=== PATIENT | female | born 1965 | race Caucasian/White ===

== ENCOUNTER 2023-02-01 14:56 | Inpatient (IN) | payer BC, OTHER ==
[2023-02-01 15:41] LABS: #Monocytes 1.1 10x3/uL (0.0-1.1); #Neutrophils 5.5 10x3/uL (1.5-8.4); %Basophils 0.5 % (0.0-2.0); %Eosinophils 0.3 % (0.0-6.0); %Lymphocytes 22.5 % (18.0-47.0); %Monocytes 12.7 % (0.0-10.0); %Neutrophils 63.8 % (40.0-75.0); ALT (SGPT) 58 U/L (8-55); AST (SGOT) 29 U/L (5-34); Albumin 4.2 g/dL (3.5-5.0); Alkaline Phosphatase 69 U/L (40-110); Anion Gap 20 mmol/L (10-20); BUN (Urea Nitrogen) 41 mg/dL (9.8-20.1); Bilirubin, Total 0.6 mg/dL (0.2-1.2); CK (CPK) 70 U/L (29-168); Calc. Creatinine Clearance 0 mL/min (70-130); Calcium 9.4 mg/dL (7.8-10.44); Carbon Dioxide 19 mmol/L (22-29); Chloride 107 mmol/L (98-107); Estimated GFR 39; Globulin 3.1 g/dL (2.4-3.5); Glucose 159 mg/dL (70-105); Hemoglobin 13.5 g/dL (12.0-15.5); Lipase 15 U/L (8-78); Magnesium 1.7 mg/dL (1.6-2.6); Mean Corpuscular HGB CONC 33.8 g/dL (32.0-36.0); Mean Corpuscular Hemoglobin 31.4 pg (27.0-33.0); Potassium 3.9 mmol/L (3.5-5.1); Protein, Total 7.3 g/dL (6.0-8.3); Sodium 142 mmol/L (136-145); White Blood Cell (WBC) Count 8.6 10x3/uL (3.5-10.5)
[2023-02-01 15:42] LABS: Platelet Count 197 10x3/uL (150-450)
[2023-02-01 15:43] LABS: Mean Platelet Volume 10.8 fl (7.4-10.4)
[2023-02-01 16:08] LABS: CKMB 2.4 ng/mL (0-6.6)
[2023-02-01] MEDS ORDERED: Ondansetron PF 4 MG/2 ML Vial IVP PRN (17:03)
[2023-02-01] MEDS ORDERED: hydrALAZINE 20 MG/ML VIAL SLOW IVP PRN (17:26)
[2023-02-01] MEDS ORDERED: Sodium Chloride 0.9% 1,000 ML IV SCH (21:00)
[2023-02-01] MEDS: Atorvastatin Calcium 40 MG TAB PO SCH (21:30)
[2023-02-01 23:24] VITALS: BMI 33.6
[2023-02-02] MEDS ORDERED: Sodium Chloride 0.9% 500 ML IV SCH (03:30)
[2023-02-02 06:44] LABS: #Eosinphils 0.1 10x3/uL (0.0-0.5); #Monocytes 0.5 10x3/uL (0.0-1.1); #Neutrophils 2.9 10x3/uL (1.5-8.4); %Basophils 0.6 % (0.0-2.0); %Eosinophils 2.5 % (0.0-6.0); %Monocytes 8.8 % (0.0-10.0); %Neutrophils 55.9 % (40.0-75.0); Hemoglobin 11.7 g/dL (12.0-15.5); Mean Corpuscular HGB CONC 33.9 g/dL (32.0-36.0); Mean Corpuscular Hemoglobin 31.3 pg (27.0-33.0); Mean Corpuscular Volume 92.2 fl (81.6-98.3); Mean Platelet Volume 10.4 fl (7.4-10.4); Platelet Count 172 10x3/uL (150-450); RBC Distribution Width 12.7 % (11.5-14.5); Red Blood Cell (RBC) Count 3.74 10x6/uL (3.90-5.03); White Blood Cell (WBC) Count 5.1 10x3/uL (3.5-10.5)
[2023-02-02 06:53] LABS: Anion Gap 14 mmol/L (10-20); BUN (Urea Nitrogen) 31 mg/dL (9.8-20.1); Calc. Creatinine Clearance 72 mL/min (70-130); Calcium 8.5 mg/dL (7.8-10.44); Carbon Dioxide 20 mmol/L (22-29); Chloride 111 mmol/L (98-107); Estimated GFR 65; Glucose 87 mg/dL (70-105); Potassium 3.4 mmol/L (3.5-5.1); Sodium 142 mmol/L (136-145)
[2023-02-02] MEDS ORDERED: Dextrose 50% Abboject 50 ML SYRINGE SLOW IVP PRN (08:22)
[2023-02-02] MEDS ORDERED: Glucagon 1 MG/ML KIT IM PRN (08:22)
[2023-02-02] MEDS ORDERED: Docusate 100 MG CAP PO PRN (08:22)
[2023-02-02] MEDS ORDERED: Dextrose 5% in Water 1,000 ML IV PRN (08:22)
[2023-02-02] MEDS ORDERED: Potassium Chloride 20 MEQ TAB PO SCH (08:30)
[2023-02-02] MEDS: Aspirin 81 mg Enteric Coated Tablet PO SCH (08:30)
[2023-02-02] MEDS ORDERED: Gemfibrozil 600 MG TAB PO SCH (09:00)
[2023-02-02 12:27] LABS: Hemoglobin A1c 7.2 % (4.0-6.0)
[2023-02-02] MEDS: Atorvastatin Calcium 40 MG TAB PO SCH (20:27)
[2023-02-03] MEDS: Levothyroxine Sodium 75 MCG TAB PO SCH (05:42)
[2023-02-03] MEDS ORDERED: Levothyroxine Sodium 50 MCG TAB PO SCH (06:00)
[2023-02-03] MEDS: HumaLOG 300 UNITS/3 ML VIAL SC PRN (06:19)
[2023-02-03 06:47] LABS: Hemoglobin 11.5 g/dL (12.0-15.5); Mean Corpuscular HGB CONC 35.1 g/dL (32.0-36.0); Mean Corpuscular Hemoglobin 31.8 pg (27.0-33.0); Mean Corpuscular Volume 90.6 fl (81.6-98.3); Mean Platelet Volume 10.2 fl (7.4-10.4); Platelet Count 167 10x3/uL (150-450); RBC Distribution Width 12.5 % (11.5-14.5); Red Blood Cell (RBC) Count 3.62 10x6/uL (3.90-5.03); White Blood Cell (WBC) Count 4.9 10x3/uL (3.5-10.5)
[2023-02-03 07:06] LABS: Anion Gap 14 mmol/L (10-20); BUN (Urea Nitrogen) 22 mg/dL (9.8-20.1); Calc. Creatinine Clearance 82 mL/min (70-130); Calcium 8.7 mg/dL (7.8-10.44); Carbon Dioxide 20 mmol/L (22-29); Cardiac Risk 6.3 (Less than 4.5); Chloride 111 mmol/L (98-107); Cholesterol 125 mg/dl (< 200 Desired); Estimated GFR 76; Glucose 157 mg/dL (70-105); HDL Cholesterol 20 mg/dL (>60 Neg Risk); LDL Cholesterol, Calculated 67 mg/dL; Sodium 141 mmol/L (136-145); Triglycerides 192 mg/dL (Less than 150); Troponin I 0.015 ng/mL (< 0.028)
[2023-02-03] MEDS: Aspirin 81 mg Enteric Coated Tablet PO SCH (09:25)
[2023-02-03] MEDS ORDERED: Topiramate 25 MG TAB PO SCH (10:30)
[2023-02-03] MEDS: Topiramate 25 MG TAB PO SCH ×2 (14:20→21:08)
[2023-02-03] MEDS: Atorvastatin Calcium 40 MG TAB PO SCH (21:08)
[2023-02-04] MEDS: Levothyroxine Sodium 75 MCG TAB PO SCH (06:25)
[2023-02-04] MEDS: Topiramate 25 MG TAB PO SCH ×3 (08:45→20:24)
[2023-02-04] MEDS: Aspirin 81 mg Enteric Coated Tablet PO SCH (08:54)
[2023-02-04] MEDS: HumaLOG 300 UNITS/3 ML VIAL SC PRN (17:14)
[2023-02-04] MEDS: Atorvastatin Calcium 40 MG TAB PO SCH (20:24)
[2023-02-05 05:22] LABS: Anion Gap 15 mmol/L (10-20); BUN (Urea Nitrogen) 15 mg/dL (9.8-20.1); Calc. Creatinine Clearance 80 mL/min (70-130); Calcium 9.2 mg/dL (7.8-10.44); Carbon Dioxide 21 mmol/L (22-29); Chloride 108 mmol/L (98-107); Estimated GFR 73; Glucose 134 mg/dL (70-105); Potassium 3.6 mmol/L (3.5-5.1); Sodium 140 mmol/L (136-145)
[2023-02-05] MEDS: Levothyroxine Sodium 75 MCG TAB PO SCH (06:25)
[2023-02-05] MEDS: NIFEdipine XL 30 MG TAB PO SCH (10:48)
[2023-02-05] MEDS: Losartan Potassium 50 MG TAB PO SCH (10:48)
[2023-02-05] MEDS: Aspirin 81 mg Enteric Coated Tablet PO SCH (10:48)
[2023-02-05] MEDS: Topiramate 25 MG TAB PO SCH ×2 (10:49→20:50)
[2023-02-05] MEDS ORDERED: Iopamidol 370 76% 100 ML VIAL ONE (14:00)
[2023-02-05] MEDS: Atorvastatin Calcium 40 MG TAB PO SCH (20:50)
[2023-02-06 04:08] LABS: #Eosinphils 0.2 10x3/uL (0.0-0.5); #Monocytes 0.5 10x3/uL (0.0-1.1); #Neutrophils 5.1 10x3/uL (1.5-8.4); %Basophils 0.6 % (0.0-2.0); %Eosinophils 3.1 % (0.0-6.0); %Lymphocytes 17.5 % (18.0-47.0); %Monocytes 6.6 % (0.0-10.0); %Neutrophils 71.9 % (40.0-75.0); Hemoglobin 13.4 g/dL (12.0-15.5); Mean Corpuscular HGB CONC 35.1 g/dL (32.0-36.0); Mean Corpuscular Hemoglobin 31.5 pg (27.0-33.0); Mean Corpuscular Volume 89.7 fl (81.6-98.3); Mean Platelet Volume 10.7 fl (7.4-10.4); Platelet Count 219 10x3/uL (150-450); RBC Distribution Width 12.6 % (11.5-14.5); Red Blood Cell (RBC) Count 4.26 10x6/uL (3.90-5.03); White Blood Cell (WBC) Count 7.1 10x3/uL (3.5-10.5)
[2023-02-06 04:22] LABS: Anion Gap 13 mmol/L (10-20); BUN (Urea Nitrogen) 17 mg/dL (9.8-20.1); Calc. Creatinine Clearance 83 mL/min (70-130); Calcium 9.4 mg/dL (7.8-10.44); Carbon Dioxide 22 mmol/L (22-29); Chloride 108 mmol/L (98-107); Estimated GFR 77; Glucose 131 mg/dL (70-105); Potassium 3.4 mmol/L (3.5-5.1); Sodium 140 mmol/L (136-145)
[2023-02-06] MEDS: Levothyroxine Sodium 75 MCG TAB PO SCH (05:31)
[2023-02-06] MEDS ORDERED: Potassium Chloride 20 MEQ TAB PO SCH (09:00)
[2023-02-06] MEDS: Topiramate 25 MG TAB PO SCH ×2 (09:04→20:35)
[2023-02-06] MEDS: NIFEdipine XL 30 MG TAB PO SCH (09:05)
[2023-02-06] MEDS: Aspirin 81 mg Enteric Coated Tablet PO SCH (09:05)
[2023-02-06] MEDS: Losartan Potassium 50 MG TAB PO SCH (09:05)
[2023-02-06] MEDS: Atorvastatin Calcium 40 MG TAB PO SCH (20:35)
[2023-02-07 03:57] LABS: #Eosinphils 0.2 10x3/uL (0.0-0.5); #Monocytes 0.5 10x3/uL (0.0-1.1); #Neutrophils 4.7 10x3/uL (1.5-8.4); %Basophils 0.4 % (0.0-2.0); %Eosinophils 3.2 % (0.0-6.0); %Lymphocytes 19.4 % (18.0-47.0); %Monocytes 7.4 % (0.0-10.0); %Neutrophils 69.3 % (40.0-75.0); Hemoglobin 13.5 g/dL (12.0-15.5); Mean Corpuscular HGB CONC 34.4 g/dL (32.0-36.0); Mean Corpuscular Hemoglobin 31.5 pg (27.0-33.0); Mean Corpuscular Volume 91.4 fl (81.6-98.3); Mean Platelet Volume 10.4 fl (7.4-10.4); Platelet Count 230 10x3/uL (150-450); Red Blood Cell (RBC) Count 4.29 10x6/uL (3.90-5.03); White Blood Cell (WBC) Count 6.9 10x3/uL (3.5-10.5)
[2023-02-07 04:10] LABS: Anion Gap 14 mmol/L (10-20); BUN (Urea Nitrogen) 22 mg/dL (9.8-20.1); Calc. Creatinine Clearance 79 mL/min (70-130); Calcium 9.4 mg/dL (7.8-10.44); Carbon Dioxide 21 mmol/L (22-29); Chloride 108 mmol/L (98-107); Estimated GFR 72; Glucose 133 mg/dL (70-105); Potassium 3.7 mmol/L (3.5-5.1); Sodium 139 mmol/L (136-145)
[2023-02-07] MEDS: Levothyroxine Sodium 75 MCG TAB PO SCH (05:20)
[2023-02-07] MEDS: Aspirin 81 mg Enteric Coated Tablet PO SCH (09:59)
[2023-02-07] MEDS: Losartan Potassium 50 MG TAB PO SCH (10:00)
[2023-02-07] MEDS: NIFEdipine XL 30 MG TAB PO SCH (10:00)
[2023-02-07] MEDS: Topiramate 25 MG TAB PO SCH ×2 (10:09→20:33)
[2023-02-07] MEDS: Atorvastatin Calcium 40 MG TAB PO SCH (20:33)
[2023-02-08 04:10] LABS: #Basophils 0.1 10x3/uL (0.0-0.2); #Eosinphils 0.2 10x3/uL (0.0-0.5); #Monocytes 0.6 10x3/uL (0.0-1.1); #Neutrophils 5.2 10x3/uL (1.5-8.4); %Basophils 0.7 % (0.0-2.0); %Eosinophils 2.8 % (0.0-6.0); %Lymphocytes 19.5 % (18.0-47.0); %Monocytes 8.2 % (0.0-10.0); %Neutrophils 68.7 % (40.0-75.0); Hemoglobin 13.4 g/dL (12.0-15.5); Mean Corpuscular Hemoglobin 31.8 pg (27.0-33.0); Mean Corpuscular Volume 90.8 fl (81.6-98.3); Mean Platelet Volume 10.8 fl (7.4-10.4); Platelet Count 241 10x3/uL (150-450); RBC Distribution Width 12.7 % (11.5-14.5); Red Blood Cell (RBC) Count 4.22 10x6/uL (3.90-5.03); White Blood Cell (WBC) Count 7.6 10x3/uL (3.5-10.5)
[2023-02-08 04:19] LABS: Anion Gap 18 mmol/L (10-20); BUN (Urea Nitrogen) 31 mg/dL (9.8-20.1); Calc. Creatinine Clearance 61 mL/min (70-130); Calcium 9.5 mg/dL (7.8-10.44); Carbon Dioxide 17 mmol/L (22-29); Chloride 108 mmol/L (98-107); Estimated GFR 53; Glucose 131 mg/dL (70-105); Potassium 3.9 mmol/L (3.5-5.1); Sodium 139 mmol/L (136-145)
[2023-02-08] MEDS: Levothyroxine Sodium 75 MCG TAB PO SCH (06:07)
[2023-02-08] MEDS: Lactated Ringer's 1,000 ML IV SCH ×2 (10:09→19:45)
[2023-02-08] MEDS: NIFEdipine XL 30 MG TAB PO SCH (10:10)
[2023-02-08] MEDS: Aspirin 81 mg Enteric Coated Tablet PO SCH (10:10)
[2023-02-08] MEDS: Topiramate 25 MG TAB PO SCH ×2 (10:11→21:16)
[2023-02-08] MEDS: Atorvastatin Calcium 40 MG TAB PO SCH (21:16)
[2023-02-09 05:40] LABS: Anion Gap 17 mmol/L (10-20); BUN (Urea Nitrogen) 27 mg/dL (9.8-20.1); Calc. Creatinine Clearance 66 mL/min (70-130); Calcium 9.1 mg/dL (7.8-10.44); Carbon Dioxide 17 mmol/L (22-29); Chloride 109 mmol/L (98-107); Estimated GFR 59; Glucose 134 mg/dL (70-105); Potassium 4.4 mmol/L (3.5-5.1); Sodium 139 mmol/L (136-145)
[2023-02-09 05:53] LABS: #Eosinphils 0.3 10x3/uL (0.0-0.5); #Monocytes 0.7 10x3/uL (0.0-1.1); #Neutrophils 5.2 10x3/uL (1.5-8.4); %Basophils 0.5 % (0.0-2.0); %Eosinophils 3.4 % (0.0-6.0); %Lymphocytes 18.8 % (18.0-47.0); %Monocytes 8.7 % (0.0-10.0); %Neutrophils 68.2 % (40.0-75.0); Hemoglobin 13.1 g/dL (12.0-15.5); Mean Corpuscular HGB CONC 34.9 g/dL (32.0-36.0); Mean Corpuscular Hemoglobin 31.5 pg (27.0-33.0); Mean Corpuscular Volume 90.1 fl (81.6-98.3); Mean Platelet Volume 10.4 fl (7.4-10.4); Platelet Count 228 10x3/uL (150-450); RBC Distribution Width 12.7 % (11.5-14.5); Red Blood Cell (RBC) Count 4.16 10x6/uL (3.90-5.03); White Blood Cell (WBC) Count 7.6 10x3/uL (3.5-10.5)
[2023-02-09] MEDS: Levothyroxine Sodium 75 MCG TAB PO SCH (05:56)
[2023-02-09] MEDS ORDERED: hydrALAZINE 20 MG/ML VIAL SLOW IVP PRN (08:46)
[2023-02-09] MEDS: Aspirin 81 mg Enteric Coated Tablet PO SCH (09:14)
[2023-02-09] MEDS: Losartan Potassium 50 MG TAB PO SCH (09:14)
[2023-02-09] MEDS: NIFEdipine XL 30 MG TAB PO SCH (09:15)
[2023-02-09] MEDS: Topiramate 25 MG TAB PO SCH ×2 (09:15→21:08)
[2023-02-09] MEDS: Atorvastatin Calcium 40 MG TAB PO SCH (21:08)
[2023-02-10 03:57] LABS: Anion Gap 19 mmol/L (10-20); BUN (Urea Nitrogen) 24 mg/dL (9.8-20.1); Calc. Creatinine Clearance 72 mL/min (70-130); Calcium 9.6 mg/dL (7.8-10.44); Carbon Dioxide 19 mmol/L (22-29); Chloride 108 mmol/L (98-107); Estimated GFR 65; Glucose 132 mg/dL (70-105); Potassium 3.5 mmol/L (3.5-5.1); Sodium 142 mmol/L (136-145)
[2023-02-10] MEDS: Levothyroxine Sodium 75 MCG TAB PO SCH (05:56)
[2023-02-10] MEDS: NIFEdipine XL 30 MG TAB PO SCH (09:27)
[2023-02-10] MEDS: Losartan Potassium 50 MG TAB PO SCH (09:28)
[2023-02-10] MEDS: Topiramate 25 MG TAB PO SCH ×2 (09:28→21:22)
[2023-02-10] MEDS: Aspirin 81 mg Enteric Coated Tablet PO SCH (09:28)
[2023-02-10] MEDS: HumaLOG 300 UNITS/3 ML VIAL SC PRN (17:49)
[2023-02-10] MEDS: Atorvastatin Calcium 40 MG TAB PO SCH (21:22)
[2023-02-11 04:40] LABS: Anion Gap 17 mmol/L (10-20); BUN (Urea Nitrogen) 20 mg/dL (9.8-20.1); Calc. Creatinine Clearance 73 mL/min (70-130); Calcium 9.4 mg/dL (7.8-10.44); Carbon Dioxide 20 mmol/L (22-29); Chloride 107 mmol/L (98-107); Estimated GFR 66; Glucose 133 mg/dL (70-105); Potassium 3.5 mmol/L (3.5-5.1); Sodium 140 mmol/L (136-145)
[2023-02-11] MEDS: Levothyroxine Sodium 75 MCG TAB PO SCH (06:09)
[2023-02-11] MEDS ORDERED: Potassium Chloride 20 MEQ TAB PO SCH (09:00)
[2023-02-11] MEDS: Topiramate 25 MG TAB PO SCH (09:07)
[2023-02-11] MEDS: Aspirin 81 mg Enteric Coated Tablet PO SCH (09:07)
[2023-02-11] MEDS: NIFEdipine XL 30 MG TAB PO SCH (09:07)
[2023-02-11] MEDS: Losartan Potassium 50 MG TAB PO SCH (09:08)
[2023-02-11 12:38] VITALS: TEMP 98.7
[2023-02-11 13:41] VITALS: BP 121/69
== END 2023-02-11 15:55 | DRG 64 ==
LOC: SUATTDRO 14:56 → CSHERS 14:56 → CSHTELE 17:26
PROVIDERS: ADMIT Family Medicine; ATTEND Internal Medicine Geriatric Medicine
DX: I63.9 Cerebral infarction, unspecified (principal); I21.A1 Myocardial infarction type 2; G81.91 Hemiplegia, unspecified affecting right dominant side; N17.9 Acute kidney failure, unspecified; E03.9 Hypothyroidism, unspecified; E11.9 Type 2 diabetes mellitus without complications; I10 Essential (primary) hypertension; E87.6 Hypokalemia; R47.01 Aphasia; E78.1 Pure hyperglyceridemia; R77.8 Other specified abnormalities of plasma proteins; E86.0 Dehydration; R29.712 NIHSS score 12; Z79.899 Other long term (current) drug therapy; Z79.82 Long term (current) use of aspirin; Z79.4 Long term (current) use of insulin
CPT/HCPCS: 36415; 36416; 70450; 70496; 70498; 70551; 71045; 80048; 80053; 80061; 82550; 82553; 83036; 83690; 83735; 84443; 84484; 85025; 85027; 93005; 93306; 93880; 94760; 96360; 96361; J1650; J1815; J7030; J7050; J7120; Q9967